=== PATIENT | female | born 1945 | race Caucasian/White ===

== ENCOUNTER 2019-05-13 07:22 | Emergency (ER) | payer MEDICARE ==
[2019-05-13] MEDS ORDERED: BENZONATATE 100 MG CAPSULE PO ONE (08:29)
[2019-05-13] MEDS ORDERED: METHYLPREDNISOLONE SOD SUCC 125MG/2ML VIAL ONE (08:30)
[2019-05-13] MEDS ORDERED: IPRATROPIUM/ALBUTEROL SULFATE 3 ML SOLUTION IH ONE (08:34)
[2019-05-13 08:49] LABS: BASOPHILS % (AUTO) 1.1 % (0.0-5.0); EOSINOPHILS % (AUTO) 9.4 % (0.0-8.0); HEMATOCRIT 40.6 % (36-48); MEAN CORPUSCULAR HGB CONC 32.3 g/dL (32.0-36.0); MEAN CORPUSCULAR VOLUME 92.9 fL (79-99); MONOCYTES % (AUTO) 8.1 % (3.0-13.0); NEUTROPHILS % (AUTO) 56.3 % (40.0-77.0); PLATELET COUNT (AUTO) 301 K/uL (130-400); RED BLOOD CELL COUNT(AUTO) 4.37 MIL/uL (4.00-5.50); RED CELL DISTRIBUTION WIDTH 11.9 % (11.0-15.5); WHITE BLOOD COUNT (AUTO) 8.8 K/uL (4.8-10.8)
[2019-05-13 08:58] LABS: CREATININE 1.4 mg/dL (0.5-1.5); POTASSIUM 4.3 mmol/L (3.5-5.1)
[2019-05-13 09:31] LABS: B-TYPE NATRIURETIC PEPTIDE 41 pg/mL (0-100)
[2019-05-13] MEDS ORDERED: OSELTAMIVIR PHOSPHATE 75 MG CAP ONE (10:04)
== END 2019-05-13 10:59 | disposition home or self-care (01) ==
LOC: EDH 07:22
DX: J10.1 Influenza due to other identified influenza virus with other respiratory manifestations (principal)
CPT/HCPCS: 36415; 71046; 80048; 82550; 83880; 84484; 85025; 87804 ×2; 93005; 94640; 96374; 99285; J2930